=== PATIENT | female | born 1975 | race Caucasian/White ===

== ENCOUNTER 2025-05-26 10:34 | Emergency (ER) | payer OTHER ==
[~2025-05-26] VITALS: Ht 170.2 cm; Wt 140.6 kg
[2025-05-26 10:43] VITALS: TEMP 98.3
[2025-05-26] MEDS ORDERED: CYCLOBENZAPRINE 10 MG TABLET ONE (11:20)
[2025-05-26] MEDS ORDERED: ACETAMINOPHEN ES 500 MG TABLET ONE (11:20)
[2025-05-26] MEDS ORDERED: IBUPROFEN 400 MG TABLET ONE (11:20)
[2025-05-26] MEDS: ACETAMINOPHEN ES 500 MG TABLET PO ONE (11:56)
[2025-05-26] MEDS: IBUPROFEN 400 MG TABLET PO ONE (11:57)
[2025-05-26] MEDS: CYCLOBENZAPRINE 10 MG TABLET PO ONE (11:58)
[2025-05-26 14:13] VITALS: BP 135/84; O2SAT 98
== END 2025-05-26 14:13 | disposition home or self-care (01) ==
LOC: ER 10:43
DX: M54.50 Low back pain, unspecified (principal); G89.29 Other chronic pain; I10 Essential (primary) hypertension; E11.9 Type 2 diabetes mellitus without complications; M51.372 Other intervertebral disc degeneration, lumbosacral region with discogenic back pain and lower extremity pain; V49.09XA Driver injured in collision with other motor vehicles in nontraffic accident, initial encounter; Y93.89 Activity, other specified; Y92.410 Unspecified street and highway as the place of occurrence of the external cause; Y99.9 Unspecified external cause status
CPT/HCPCS: 72131-TC